=== PATIENT | male | born 1965 | race Caucasian/White ===

== ENCOUNTER 2020-07-09 01:19 | Emergency (ER) | payer SELFPAY ==
[~2020-07-09] VITALS: Ht 190.5 cm; Wt 84.0 kg
[2020-07-09] MEDS ORDERED: BACTRIM DS1 TAB PO (02:34)
[2020-07-09] MEDS ORDERED: CIPROFLOXACN500 MG PO (02:34)
[2020-07-09] MEDS ORDERED: IBUPROFEN600 MG PO (02:34)
[2020-07-09 02:58] VITALS: BP 123/84
== END 2020-07-09 02:58 | disposition home or self-care (01) | DRG 603 ==
LOC: ED 01:19
DX: L02.212 Cutaneous abscess of back [any part, except buttock and flank] (principal)

== ENCOUNTER 2020-07-16 21:42 | Emergency (ER) | payer SELFPAY ==
[~2020-07-16] VITALS: Ht 190.5 cm; Wt 84.0 kg
[~2020-07-16 21:42] MED LIST: BACTRIM DS1 TAB PO; CIPROFLOXACN500 MG PO; IBUPROFEN600 MG PO
[2020-07-16] MEDS ORDERED: TRAMADOL HCL50 MG PO (22:36)
[2020-07-16] MEDS ORDERED: DOXYCYCL HYC100 MG PO (22:36)
[2020-07-16 22:39] VITALS: BP 142/86
== END 2020-07-16 22:49 | disposition home or self-care (01) ==
LOC: ED 21:42
DX: L02.212 Cutaneous abscess of back [any part, except buttock and flank] (principal); F17.210 Nicotine dependence, cigarettes, uncomplicated

== ENCOUNTER 2020-07-18 18:04 | Emergency (ER) | payer SELFPAY ==
[~2020-07-18] VITALS: Ht 190.5 cm; Wt 90.9 kg
[~2020-07-18 18:04] MED LIST changes: +DOXYCYCL HYC100 MG PO; +TRAMADOL HCL50 MG PO
== END 2020-07-18 19:00 | disposition home or self-care (01) | DRG 951 ==
LOC: ED 18:04
DX: Z48.01 Encounter for change or removal of surgical wound dressing (principal); F17.210 Nicotine dependence, cigarettes, uncomplicated

== ENCOUNTER 2020-07-20 12:57 | Emergency (ER) | payer SELFPAY ==
[~2020-07-20] VITALS: Ht 190.5 cm; Wt 86.0 kg
[2020-07-20] MEDS ORDERED: ULTRAM50 M1 PO (13:27)
[2020-07-20] MEDS ORDERED: BACTRIM DS1 TAB PO (13:27)
[2020-07-20 13:30] VITALS: BP 135/78
== END 2020-07-20 13:30 | disposition home or self-care (01) | DRG 951 ==
LOC: ED 12:57
DX: Z48.01 Encounter for change or removal of surgical wound dressing (principal); F17.210 Nicotine dependence, cigarettes, uncomplicated